=== PATIENT | male | born 1955 | race Caucasian/White ===

== ENCOUNTER 2025-03-19 06:16 | Day surgery (SDC) | payer MEDICARE ==
[2025-03-15 09:45] VITALS: BMI 22.4
[~2025-03-19 06:16] MED LIST: ALPRAZolam 0.25 MG TAB PO PRN; ALPRAZolam 0.5 MG TAB PO PRN; NITROGLYCERIN SL TABS 0.4 MG TAB SUBLINGUAL PRN
[2025-03-19] MEDS: SODIUM CHLORIDE 0.9% 1,000 ML in EMPTY BAG 1 BAG IV SCH (06:41)
[2025-03-19] MEDS: ASPIRIN 325 MG TAB PO ONE (06:41)
[2025-03-19 06:48] LABS: Glucose,Whole Blood 148 mg/dL (70-110)
[2025-03-19] MEDS: IV FLUID CONTINUATION 1,000 ML IV ONE ×2 (06:50→08:00)
[2025-03-19 06:55] VITALS: RESP 16; TEMP 97.7
[2025-03-19] MEDS: HEPARIN SODIUM,PORCINE 10,000 UNIT in SODIUM CHLORIDE 0.9% 1,000 ML IRRIGATION PRN (07:20)
[2025-03-19] MEDS: HEPARIN SODIUM,PORCINE (1 ML) 2,500 UNIT in SODIUM CHLORIDE 0.9% 250 ML IRRIGATION PRN (07:20)
[2025-03-19] MEDS: MIDAZOLAM 2 MG/2 ML VIAL IVP ONE (07:36)
[2025-03-19] MEDS: fentaNYL (PF) 50 MCG/1 ML VIAL IVP ONE (07:36)
[2025-03-19] MEDS: LIDOCAINE 1% INJ 10MG/ML (20 ML MDV) SQ ONE (07:38)
[2025-03-19] MEDS: VERAPAMIL SYRINGE (5 MG/10 ML) INTRAARTER ONE (07:39)
[2025-03-19] MEDS: HEPARIN SODIUM 1,000 UN/ML (10ML VL) IV ONE (07:42)
[2025-03-19] MEDS: IOPAMIDOL-370 100ML BTL INJ ONE (07:53)
--- NOTE | 2025-03-19 08:07 | P.CARDCATH ---
Description of Procedure: PROCEDURES PERFORMED: Left heart catheterization, bilateral coronary angiography, ultrasound guided arterial access INDICATION: Abnormal stress test CONSENT:I have discussed the risks, benefits and alternative therapies for the above-mentioned procedure and for both sedation/analgesia as well as necessary blood product administration, if indicated, as they pertain to this patient. The patient has indicated understanding and acceptance of the risks and procedures discussed. PROCEDURE: After the risks, benefits and alternatives of the above mentioned procedure explained in detail with the patient, informed consent was obtained. Patient was taken to the catheterization lab and prepped and draped in usual fashion. Ultrasound guidance was used to assess for arterial access. 1% lidocaine was used to anesthetize the right radial artery. A 6-Gibralt[place] sheath was placed in the right radial artery using modified Seldinger technique and ultrasound guidance. Left coronary angiography was performed with a 5-Gib[place] JL 3.5 catheter and right coronary angiography was attempted with a 5-[place] AR2 catheter however anomalous RCA and no [place] RCA from the right coronary cusp noted with injection of the coronary cusp. A 5-[place] FR 5 catheter was inserted into the left ventricle and pressure measurements were obtained. The right radial sheath was removed and a TR band was placed with hemostasis achieved. The patient tolerated the procedure well. Patient was transported back to the post catheterization holding area in stable condition. Conscious Sedation: Patient was monitored under the direct supervision of myself for conscious sedation using Versed and fentanyl for a total duration of 17 minutes HEMODYNAMICS: Aorta: 142/72 LV: 141/7, LVEDP 14 SELECTIVE CORONARY ARTERIOGRAPHY: LEFT MAIN: The left main is a large caliber vessel which trifurcates into the LAD, ramus and circumflex. There is no significant stenosis. LEFT ANTERIOR DESCENDING CORONARY ARTERY: LAD is a large caliber vessel which wraps around to the apex. There are mild luminal irregularities of LAD. RAMUS INTERMEDIUS: The ramus is a small caliber vessel with no significant stenosis LEFT CIRCUMFLEX CORONARY ARTERY: Left circumflex is a large caliber vessel with 30 to 40% mid circumflex stenosis and otherwise mild luminal irregularities. The RCA gives off the PDA as well as anomalous RCA coming off the distal circumflex coming back to give off an acute RV marginal. There is a distal 40 to 50% anomalous RCA stenosis. RIGHT CORONARY ARTERY: The right coronary artery is anomalous coming off the circumflex and no [place] RCA noted coming from the right coronary cusp. FINAL IMPRESSION: 1. 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 Normal left sided filling pressures 3. 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 Aggressive risk factor modification per most recent ACC/AHA guidelines. 2. Patient with anomalous RCA however no critical disease and therefore medical therapy.
[2025-03-19 10:02] VITALS: BP 178/91; PULSE 55
== END 2025-03-19 11:26 | disposition home or self-care (01) ==
LOC: CATHCVL 06:16
PROVIDERS: ATTEND Internal Medicine
DX: I25.10 Atherosclerotic heart disease of native coronary artery without angina pectoris (principal); I10 Essential (primary) hypertension; E10.9 Type 1 diabetes mellitus without complications; E78.5 Hyperlipidemia, unspecified; Z72.0 Tobacco use; Q24.5 Malformation of coronary vessels; Z79.82 Long term (current) use of aspirin; Z79.84 Long term (current) use of oral hypoglycemic drugs; Z79.899 Other long term (current) drug therapy
CPT/HCPCS: 93458; 99152; C1769; C1894; J2250; J1644 ×3; J2003; Q9967; J3010